=== PATIENT | male | born 2000 | race Caucasian/White ===

== ENCOUNTER 2019-03-04 00:37 | Inpatient (IN) | payer MEDICAID ==
[~2019-03-04] VITALS: Ht 180.3 cm; Wt 71.2 kg
[2019-03-04] MEDS ORDERED: POLYETHYLENE GLYCOL 17 GM PACKET PO PRN (01:00)
[2019-03-04] MEDS ORDERED: DOCUSATE 100 MG CAPSULE PO PRN (01:00)
[2019-03-04] MEDS ORDERED: BISACODYL 10 MG SUPP PR PRN (01:00)
[2019-03-04] MEDS ORDERED: ONDANSETRON ODT 4 MG PO PRN (01:00)
[2019-03-04] MEDS: ACETAMINOPHEN 325 MG TABLET PO PRN (03:17)
[2019-03-04] MEDS ORDERED: IBUPROFEN 200 MG TABLET PO PRN (03:30)
[2019-03-04 04:38] VITALS: BP 116/76
[2019-03-04 07:01] LABS: BASOPHILS # (AUTO) 0.04 x10^3/uL (0-0.3); BASOPHILS % (AUTO) 1 % (0-1); EOSINOPHILS # (AUTO) 0.13 x10^3/uL (0-0.8); EOSINOPHILS % (AUTO) 2 % (1-7); LYMPHOCYTES # (AUTO) 1.73 x10^3/uL (1-6.1); LYMPHOCYTES % (AUTO) 20 % (22-44); MD NO; MEAN CORPUSCULAR HEMOGLOBIN 30.9 pg (27.5-34.5); MEAN CORPUSCULAR HGB CONC 33.6 g/dL (33.2-36.2); MEAN CORPUSCULAR VOLUME 91.9 fL (81-97); MEAN PLATELET VOLUME 9.7 fL (7.4-10.4); MONOCYTES # (AUTO) 0.71 x10^3/uL (0-1.4); MONOCYTES % (AUTO) 8 % (2-9); NEUTROPHILS # (AUTO) 6.29 x10^3/uL (1.8-8.0); NEUTROPHILS % (AUTO) 71 % (42-75); PLATELET COUNT 166 x10^3/uL (130-400); RED CELL DISTRIBUTION WIDTH 13.4 % (9.4-14.8)
[2019-03-04 07:04] LABS: ALBUMIN 4.7 g/dL (3.4-5.0); ANION GAP 4 mmol/L (5-15); CALCIUM 8.8 mg/dL (8.5-10.1); CHLORIDE 109 mmol/L (98-107)
[2019-03-04 07:14] LABS: ALANINE AMINOTRANSFERASE 16 U/L (12-78); ALKALINE PHOSPHATASE 63 U/L (45-117); BILIRUBIN,TOTAL 1.2 mg/dL (0.2-1.0); CHOL/HDL RATIO 3.1; CHOLESTEROL, TOTAL 125 mg/dL (140-239); CREATININE 0.74 mg/dL (0.7-1.3); FREE T4 (FREE THYROXINE) 0.99 ng/dL (0.76-1.46); HDL CHOL % 32 % (26-37); HDL CHOLESTEROL (DIRECT) 40 mg/dL (40-60); LDL CHOLESTEROL,CALCULATED 73 mg/dL (54-169); LDL/HDL RATIO 1.8 (0.5-3.0); TOTAL PROTEIN 7.7 g/dL (6.4-8.2); TRIGLYCERIDES 60 mg/dL (50-200); VLDL CHOLESTEROL 12 mg/dL (0-25)
[2019-03-04 07:31] VITALS: BP 114/71
[2019-03-04 12:23] LABS: MICROSCOPIC INDICATED
[2019-03-04 12:35] LABS: CULTURE INDICATED? YES
[2019-03-04] MEDS ORDERED: OLANZAPINE 5 MG TABLET PO PRN (17:30)
[2019-03-04] MEDS: BENZONATATE 100 MG CAPSULE PO SCH ×2 (17:53→20:24)
[2019-03-04 19:12] VITALS: BP 128/79
[2019-03-05 07:31] VITALS: BP 114/67
[2019-03-05] MEDS: BENZONATATE 100 MG CAPSULE PO SCH ×3 (08:22→20:10)
[2019-03-05] MEDS ORDERED: SERTRALINE 100MG TABLET ONE (09:50)
[2019-03-05] MEDS: SERTRALINE 100MG TABLET PO SCH (09:58)
[2019-03-05] MEDS: GUANFACINE 1 MG TABLET PO SCH (11:02)
[2019-03-05 19:38] VITALS: BP 102/66
[2019-03-05] MEDS: QUETIAPINE 100MG TABLET PO SCH (20:10)
[2019-03-06 07:22] VITALS: BP 121/70
[2019-03-06] MEDS: ACETAMINOPHEN 325 MG TABLET PO PRN ×3 (08:42→20:57)
[2019-03-06] MEDS: GUANFACINE 1 MG TABLET PO SCH (08:42)
[2019-03-06] MEDS: BENZONATATE 100 MG CAPSULE PO SCH ×3 (08:43→20:53)
[2019-03-06] MEDS: SERTRALINE 100MG TABLET PO SCH (08:43)
[2019-03-06 19:33] VITALS: BP 123/64
[2019-03-06] MEDS: QUETIAPINE 100MG TABLET PO SCH (20:54)
[2019-03-07 07:20] VITALS: BP 139/72
[2019-03-07] MEDS: ACETAMINOPHEN 325 MG TABLET PO PRN ×2 (07:38→19:42)
[2019-03-07] MEDS: BENZONATATE 100 MG CAPSULE PO SCH ×3 (08:24→19:42)
[2019-03-07] MEDS: SERTRALINE 100MG TABLET PO SCH (08:24)
[2019-03-07] MEDS: GUANFACINE 1 MG TABLET PO SCH (08:24)
[2019-03-07] MEDS ORDERED: CALCIUM CARBONATE 500 MG TAB.CHEW ONE (17:44)
[2019-03-07] MEDS: CALCIUM CARBONATE 500 MG TAB.CHEW PO PRN (17:46)
[2019-03-07 19:34] VITALS: BP 111/69
[2019-03-07] MEDS: QUETIAPINE 100MG TABLET PO SCH (19:43)
[2019-03-08 07:40] VITALS: BP 107/71
[2019-03-08] MEDS: GUANFACINE 1 MG TABLET PO SCH (08:21)
[2019-03-08] MEDS: SERTRALINE 100MG TABLET PO SCH (08:21)
[2019-03-08] MEDS: BENZONATATE 100 MG CAPSULE PO SCH ×3 (08:21→20:10)
[2019-03-08] MEDS: CALCIUM CARBONATE 500 MG TAB.CHEW PO PRN (08:22)
[2019-03-08] MEDS: ACETAMINOPHEN 325 MG TABLET PO PRN ×3 (08:22→20:59)
[2019-03-08] MEDS ORDERED: ALUMINUM/MAG/SIMETHICONE 30 ML UDC ONE (09:38)
[2019-03-08] MEDS ORDERED: ALUMINUM/MAG/SIMETHICONE 30 ML UDC PO PRN ×2 (10:00)
[2019-03-08] MEDS: ASCORBIC ACID 500 MG TABLET PO SCH (11:02)
[2019-03-08 19:31] VITALS: BP 109/66
[2019-03-08] MEDS: QUETIAPINE 100MG TABLET PO SCH (20:10)
[2019-03-09 07:03] VITALS: BP 116/74
[2019-03-09] MEDS: GUANFACINE 1 MG TABLET PO SCH (08:46)
[2019-03-09] MEDS: BENZONATATE 100 MG CAPSULE PO SCH ×3 (08:46→21:30)
[2019-03-09] MEDS: ASCORBIC ACID 500 MG TABLET PO SCH (08:46)
[2019-03-09] MEDS: SERTRALINE 100MG TABLET PO SCH (08:46)
[2019-03-09 19:00] VITALS: BP 103/66
[2019-03-09] MEDS: ACETAMINOPHEN 325 MG TABLET PO PRN (20:39)
[2019-03-09] MEDS: QUETIAPINE 100MG TABLET PO SCH (21:30)
[2019-03-10 07:29] VITALS: BP 97/61
[2019-03-10] MEDS: ASCORBIC ACID 500 MG TABLET PO SCH (08:40)
[2019-03-10] MEDS: BENZONATATE 100 MG CAPSULE PO SCH (08:40)
[2019-03-10] MEDS: GUANFACINE 1 MG TABLET PO SCH (08:40)
[2019-03-10] MEDS: SERTRALINE 100MG TABLET PO SCH (08:40)
[2019-03-10 11:49] LABS: BASOPHILS # (AUTO) 0.02 x10^3/uL (0-0.3); BASOPHILS % (AUTO) 1 % (0-1); EOSINOPHILS # (AUTO) 0.05 x10^3/uL (0-0.8); EOSINOPHILS % (AUTO) 1 % (1-7); LYMPHOCYTES # (AUTO) 0.75 x10^3/uL (1-6.1); LYMPHOCYTES % (AUTO) 15 % (22-44); MD NO; MEAN CORPUSCULAR HEMOGLOBIN 30.7 pg (27.5-34.5); MEAN CORPUSCULAR HGB CONC 33.8 g/dL (33.2-36.2); MEAN CORPUSCULAR VOLUME 90.8 fL (81-97); MEAN PLATELET VOLUME 8.3 fL (7.4-10.4); MONOCYTES # (AUTO) 0.44 x10^3/uL (0-1.4); MONOCYTES % (AUTO) 9 % (2-9); NEUTROPHILS # (AUTO) 3.74 x10^3/uL (1.8-8.0); NEUTROPHILS % (AUTO) 75 % (42-75); PLATELET COUNT 155 x10^3/uL (130-400); RED BLOOD COUNT 4.83 x10^6/uL (4.38-5.82); RED CELL DISTRIBUTION WIDTH 13.1 % (9.4-14.8)
[2019-03-10 12:09] LABS: RAPID INFLUENZA A Negative (Negative); RAPID INFLUENZA B Negative (Negative)
[2019-03-10 19:33] VITALS: BP 109/73
[2019-03-10] MEDS: QUETIAPINE 100MG TABLET PO SCH (20:04)
[2019-03-10] MEDS: ACETAMINOPHEN 325 MG TABLET PO PRN (20:04)
[2019-03-11 07:28] VITALS: BP 104/75
[2019-03-11] MEDS: GUANFACINE 1 MG TABLET PO SCH (08:51)
[2019-03-11] MEDS: SERTRALINE 100MG TABLET PO SCH (08:52)
[2019-03-11] MEDS: ASCORBIC ACID 500 MG TABLET PO SCH (08:52)
[2019-03-11 19:23] VITALS: BP 109/56
[2019-03-11] MEDS: QUETIAPINE 100MG TABLET PO SCH (21:51)
[2019-03-12 07:34] VITALS: BP 132/85
[2019-03-12] MEDS: GUANFACINE 1 MG TABLET PO SCH (08:08)
[2019-03-12] MEDS: ASCORBIC ACID 500 MG TABLET PO SCH (08:09)
[2019-03-12] MEDS: SERTRALINE 100MG TABLET PO SCH (08:09)
[2019-03-12 19:37] VITALS: BP 106/72
[2019-03-12] MEDS: QUETIAPINE 100MG TABLET PO SCH (19:57)
[2019-03-12] MEDS: CALCIUM CARBONATE 500 MG TAB.CHEW PO PRN (20:35)
[2019-03-13 07:05] VITALS: BP 101/65
[2019-03-13] MEDS: ASCORBIC ACID 500 MG TABLET PO SCH (08:15)
[2019-03-13] MEDS: GUANFACINE 1 MG TABLET PO SCH (08:15)
[2019-03-13] MEDS: SERTRALINE 100MG TABLET PO SCH (08:15)
[2019-03-13 19:40] VITALS: BP 104/69
[2019-03-13] MEDS: QUETIAPINE 100MG TABLET PO SCH (20:48)
[2019-03-14 07:03] VITALS: BP 96/60
[2019-03-14] MEDS: GUANFACINE 1 MG TABLET PO SCH (08:45)
[2019-03-14] MEDS: ASCORBIC ACID 500 MG TABLET PO SCH (08:45)
[2019-03-14] MEDS: SERTRALINE 100MG TABLET PO SCH (08:46)
[2019-03-14] MEDS: CALCIUM CARBONATE 500 MG TAB.CHEW PO PRN ×2 (12:37→20:20)
[2019-03-14 19:27] VITALS: BP 100/56
[2019-03-14] MEDS: QUETIAPINE 100MG TABLET PO SCH (20:20)
[2019-03-15 07:31] VITALS: BP 104/67
[2019-03-15] MEDS: SERTRALINE 100MG TABLET PO SCH (08:40)
[2019-03-15] MEDS: ASCORBIC ACID 500 MG TABLET PO SCH (08:40)
[2019-03-15] MEDS: CALCIUM CARBONATE 500 MG TAB.CHEW PO PRN ×2 (08:40→20:17)
[2019-03-15] MEDS: GUANFACINE 1 MG TABLET PO SCH (08:40)
[2019-03-15 19:46] VITALS: BP 106/71
[2019-03-15] MEDS: QUETIAPINE 100MG TABLET PO SCH (20:17)
[2019-03-16 07:45] VITALS: BP 116/63
[2019-03-16] MEDS: SERTRALINE 100MG TABLET PO SCH (08:23)
[2019-03-16] MEDS: ASCORBIC ACID 500 MG TABLET PO SCH (08:23)
[2019-03-16] MEDS: GUANFACINE 1 MG TABLET PO SCH (08:23)
[2019-03-16] MEDS: CALCIUM CARBONATE 500 MG TAB.CHEW PO PRN ×2 (09:51→18:15)
[2019-03-16] MEDS ORDERED: GUAN1TAB PO (12:21)
[2019-03-16] MEDS ORDERED: SERT100T32 PO (12:21)
[2019-03-16] MEDS ORDERED: QUET100T PO (12:21)
[2019-03-16 19:29] VITALS: BP 113/72
[2019-03-16] MEDS: QUETIAPINE 100MG TABLET PO SCH (20:03)
[2019-03-17 07:19] VITALS: BP 100/71
[2019-03-17] MEDS: GUANFACINE 1 MG TABLET PO SCH (08:12)
[2019-03-17] MEDS: SERTRALINE 100MG TABLET PO SCH (08:12)
[2019-03-17] MEDS: ASCORBIC ACID 500 MG TABLET PO SCH (08:12)
[2019-03-17] MEDS: CALCIUM CARBONATE 500 MG TAB.CHEW PO PRN (10:28)
== END 2019-03-17 15:47 | disposition home or self-care (01) | DRG 751 ==
LOC: 3E 00:37
PROVIDERS: ADMIT Psychiatry & Neurology Psychosomatic Medicine; ATTEND Psychiatry & Neurology Psychosomatic Medicine
DX: F33.2 Major depressive disorder, recurrent severe without psychotic features (principal); F70 Mild intellectual disabilities; R62.50 Unspecified lack of expected normal physiological development in childhood; F90.9 Attention-deficit hyperactivity disorder, unspecified type; Z79.899 Other long term (current) drug therapy; Z80.0 Family history of malignant neoplasm of digestive organs
CPT/HCPCS: 36415; 80053; 80061; 81001; 82140; 82607; 84145; 84439; 84443; 85025; 87086; 87400; 93005; Q0162

== ENCOUNTER 2019-04-22 16:19 | Emergency (ER) | payer MEDICAID ==
[~2019-04-22] VITALS: Ht 165.1 cm; Wt 63.8 kg
[2019-04-22 16:19] VITALS: BP 116/73
[~2019-04-22 16:19] MED LIST: GUAN1TAB PO; QUET100T PO; SERT100T32 PO
--- NOTE | 2019-04-22 16:19 | NUR ---
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
--- NOTE | 2019-04-22 16:51 | NUR ---
PT SEEN BY ERP (DR PARKS), DENIES SI/HI, ERP TO DECERT L2K & PREP FOR DC.
--- NOTE | 2019-04-22 17:02 | NUR ---
Patient given discharge instructions and they have confirmed that they understand the instructions. Patient ambulatory with steady gait.
== END 2019-04-22 17:24 | disposition home or self-care (01) ==
LOC: ED 17:18
DX: Z03.89 Encounter for observation for other suspected diseases and conditions ruled out (principal); R62.59 Other lack of expected normal physiological development in childhood; F79 Unspecified intellectual disabilities
CPT/HCPCS: 99283

== ENCOUNTER 2019-11-03 22:15 | Emergency (ER) | payer MEDICAID ==
[~2019-11-03] VITALS: Ht 167.6 cm; Wt 71.7 kg
[2019-11-03 22:18] VITALS: BP 133/82
[2019-11-03] MEDS ORDERED: ACETAMINOPHEN 325 MG TABLET ONE (22:35)
[2019-11-03] MEDS ORDERED: ACETAMINOPHEN 325 MG TABLET PO ONE (23:00)
== END 2019-11-03 23:59 | disposition home or self-care (01) ==
LOC: ED 23:45
DX: F41.1 Generalized anxiety disorder (principal)
CPT/HCPCS: 99282

== ENCOUNTER 2020-04-16 17:54 | Emergency (ER) | payer MEDICAID ==
[~2020-04-16] VITALS: Ht 165.1 cm; Wt 79.7 kg
[2020-04-16 17:56] VITALS: BP 118/81
--- NOTE | 2020-04-16 18:12 | NUR ---
Pt to room from lobby.
--- NOTE | 2020-04-16 18:31 | NUR ---
arlene gray in room pt [email or web address]. as
== END 2020-04-16 18:50 | disposition home or self-care (01) ==
LOC: ED 18:40
DX: F39 Unspecified mood [affective] disorder (principal)
CPT/HCPCS: 99281